=== PATIENT | male | born 1970 | race Caucasian/White ===

== ENCOUNTER 2024-01-05 08:35 | Outpatient (CLI) | payer OTHER | END 2024-01-05 23:59 | disposition home or self-care (01) | LOC: RAD 08:35 | PROVIDERS: ATTEND Family Medicine | DX: J32.4 Chronic pansinusitis (principal); J34.89 Other specified disorders of nose and nasal sinuses | CPT/HCPCS: 70486 ==

== ENCOUNTER 2025-04-04 11:44 | Outpatient (CLI) | payer BC ==
--- NOTE | 2025-04-04 13:00 | RADIOLOGY REPORT ---
EXAM: DI FOOT, COMPLETE (3VW MIN) CLINICAL INDICATION: LEFT FOOT PAIN TECHNIQUE: DI FOOT, COMPLETE (3VW MIN) Comparison: None FINDINGS/IMPRESSION: There is no evidence of acute fracture or dislocation. The visualized joint space is well maintained. The alignment is anatomical. There is no radiopaque foreign body.
== END 2025-04-04 23:59 | disposition home or self-care (01) ==
LOC: RAD 11:44
PROVIDERS: ATTEND Family Medicine
DX: M79.672 Pain in left foot (principal); M79.89 Other specified soft tissue disorders
CPT/HCPCS: 73630